=== PATIENT | female | born 1965 | race Caucasian/White ===

== ENCOUNTER 2017-02-03 22:38 | Emergency (ER) | payer BC ==
[2017-02-04] MEDS ORDERED: Sodium Chloride 0.9% 10 ML Syringe FLUSH PRN (01:14)
[2017-02-04] MEDS ORDERED: Sodium Chloride 0.9% 1,000 ML IV ONE (01:14)
[2017-02-04] MEDS ORDERED: Ketorolac 30 MG/ML SDV IVPUSH ONE (01:14)
[2017-02-04] MEDS ORDERED: Ondansetron 4 MG/2 ML SDV IVPUSH ONE (01:14)
--- NOTE | 2017-02-04 01:15 | EDM.PDOC ---
ED HPI HEADACHE COMPLAINT - General Chief Complaint: Headache Stated Complaint: VOMITING POSS KIDNEY STONE Time Seen by Provider: 02/04/17 01:05 Source of Information: Reports: Patient History Limitations: Reports: No limitations - History of Present Illness INITIAL COMMENTS - FREE TEXT/NARRATIVE: Patient presents for evaluation and treatment of a migraine headache and vomiting. Patient reports that her migraine has been present all day. She states that it is now starting to improve. She states that it is currently a 3/ 10. She reports that she has vomited 10-15 times a day. Patient currently complains of headache, photophobia, nausea, vomiting and back pain. She reports that her back pain is chronic and she has not noticed any change. Patient presented to the ER she is concerned she may have kidney stones. She states last time she had kidney stones she had a similar presentation, however, her back pain was worse. She denies any change in urine odor or color or any hematuria or flank pain. Patient reports that she has a history of migraine headaches. She's not on any medications for her migraine headache Timing/Duration: Reports: day(s): (1), improving Severity: Reports: similar to past headaches Associated Symptoms: Reports: photophobia - Related Data Allergies/ADRs: Allergies Allergy/AdvReac Type Severity Reaction Status Date / Time No Known Allergies Allergy Verified 02/03/17 23:05 Home Meds: Home Meds Levothyroxine Sodium [Synthroid] 125 mcg PO DAILY 02/03/17 [History] Minocycline [Minocin] 100 mg PO DAILY PRN 02/03/17 [History] Ondansetron [Zofran ODT] 4 mg PO Q6H PRN #12 tab.dis 02/04/17 [Rx] Past Medical History Musculoskeletal History: Reports: Other (see below) Other Musculoskeletal History: right knee replacement Neurological History: Reports: Migraines Endocrine/Metabolic History: Reports: Hypothyroidism Other Endocrine/Metabolic History: thyroidectomy-graves disease - Infectious Disease History Infectious Disease History: Reports: None - Past Surgical History Female Surgical History: Reports: section, Hysterectomy Social & Family History - Tobacco Use Smoking Status *Q: Never Smoker - Caffeine Use Caffeine Use: Reports: Soda - Recreational Drug Use Recreational Drug Use: No ED ROS GENERAL - Review of Systems Review Of Systems: See Below Constitutional: Denies: fever GI/Abdominal: Reports: Nausea, Vomiting. Denies: Abdominal pain, Constipation, Diarrhea (reports photophobia) : Denies: dysuria, hematuria Musculoskeletal: Reports: back pain Neurological: Reports: Headache - Physical Exam Exam: See Below Exam Limited By: No limitations General Appearance: alert, WD/WN, no apparent distress Eye Exam: bilateral eye: PERRL Ears: normal external exam Throat/Mouth: Normal inspection, Normal voice, No airway compromise Neck: normal inspection, full range of motion Respiratory/Chest: no respiratory distress, lungs clear, normal breath sounds Cardiovascular: normal peripheral pulses, regular rate, rhythm, no murmur Neuro Exam (Abbreviated): alert, oriented, normal cognition Psychiatric: normal affect, normal mood Skin Exam: Warm, Dry, Normal color Course - Orders/Labs/Meds Labs: Laboratory Tests 02/03/17 02/03/17 02/04/17 Range/Units 23:59 23:59 02:55 WBC 8.76 (3.98-10.04) K/mm3 RBC 5.23 H (3.98-5.22) M/mm3 Hgb 15.1 (11.2-15.7) gm/L Hct 42.5 (34.1-44.9) % MCV 81.3 (79.4-94.8) fl MCH 28.9 (25.6-32.2) pg MCHC 35.5 (32.2-35.5) g/dl RDW Std Deviation 37.9 (36.4-46.3) fL Plt Count 244 (182-369) K/mm3 MPV 10.7 (9.4-12.3) fl Neut % (Auto) 87.9 H (34.0-71.1) % Lymph % (Auto) 8.3 L (19.3-51.7) % [place] % (Auto) 3.1 L (4.7-12.5) % Eos % (Auto) 0 L (0.7-5.8) Baso % (Auto) 0.1 (0.1-1.2) % Neut # 7.70 H (1.56-6.13) K/mm3 Lymph # 0.73 L (1.18-3.74) K/mm3 [place] # 0.27 (0.24-0.36) K/mm3 Eos # 0.00 L (0.04-0.36) K/mm3 Baso # 0.01 (0.01-0.08) K/mm3 Manual Slide Review Abnormal smear Sodium 140 (136-145) mEq/L Potassium 3.7 (3.5-5.1) mEq/L Chloride 102 (98-107) mEq/L Carbon Dioxide 27 (21-32) mEq/L Anion Gap 14.7 (5-15) BUN 14 (7-18) mg/dL Creatinine 0.7 (0.55-1.02) mg/dL Est Cr Clr Drug Dosing 83.03 mL/min Estimated GFR (MDRD) > 60 (>60) mL/min BUN/Creatinine Ratio 20.0 H (14-18) Glucose 150 H (74-106) mg/dL Calcium 9.0 (8.5-10.1) mg/dL Total Bilirubin 0.7 (0.2-1.0) mg/dL AST 13 L (15-37) U/L ALT 26 (14-59) U/L Alkaline Phosphatase 81 (46-116) U/L C-Reactive Protein 0.7 (<1.0) mg/dL Total Protein 7.7 (6.4-8.2) g/dl Albumin 4.5 (3.4-5.0) g/dl Globulin 3.2 gm/dL Albumin/Globulin Ratio 1.4 (1-2) Urine Color Yellow (Yellow) Urine Appearance Slt cloudy H (Clear) Urine pH 6.0 (5.0-8.0) Ur Specific [place] > or = 1.030 (1.005-1.030) Urine Protein 2+ H (Negative) Urine Glucose (UA) Negative (Negative) Urine Ketones 2+ H (Negative) Urine Occult Blood Negative (Negative) Urine Nitrite Negative (Negative) Urine Bilirubin Negative (Negative) Urine Urobilinogen 0.2 (0.2-1.0) Ur Leukocyte Esterase Negative (Negative) Urine RBC 0-5 (0-5) /hpf Urine WBC 0-5 (0-5) /hpf Urine WBC Clumps Not seen (NOT SEEN) /hpf Ur Epithelial Cells 10-20 H (0-5) /hpf Urine Bacteria Few (FEW) /hpf Urine Mucus Few (FEW) /hpf Urine Yeast Not seen (NOT SEEN) Meds: Medications Discontinued Medications Generic Name Dose Route Start Last Admin Trade Name Freq PRN Reason Stop Dose Admin Sodium Chloride 1,000 mls @ 999 mls/hr 02/04/17 01:14 02/04/17 01:36 Normal Saline IV 02/04/17 02:14 999 mls/hr ONETIME ONE Administration Ketorolac Tromethamine 30 mg 02/04/17 01:14 02/04/17 01:39 Toradol IVPUSH 02/04/17 01:15 30 mg ONETIME ONE Administration Ondansetron HCl 4 mg 02/04/17 01:14 02/04/17 01:36 Zofran IVPUSH 02/04/17 01:15 4 mg ONETIME ONE Administration Sodium Chloride 10 ml 02/04/17 01:14 02/04/17 01:36 Saline Flush FLUSH 10 ml ASDIRECTED PRN Administration Keep Vein Open - Radiology Interpretation Free Text/Narrative:: CTabdomen and pelvis impression per [facility]:1. No acute findings 2. Small nonobstructing stone the left kidney. - Re-Assessments/Exams Free Text/Narrative Re-Assessment/Exam: 02/04/17 02:35 Labs returned. WBC is 8.76, hgb is 15.1 and plts are 244 Sodium is 140, potassium is 3.7 and chloride is 102. Glucose is 150. CRP is 0.7 Headache and nausea improved. Patient is resting comfortably. 02/04/17 02:55 UA has 2+ protein, 2+ ketones, negative for blood, nitrites, and leuks Patient appears to have a migraine. No further treatment at this time. Will discharge home at this time. Departure - Departure Time of Disposition: 02:56 Disposition: Home, Self-Care 01 Condition: fair Clinical Impression: Migraine Prescriptions: Ondansetron [Zofran ODT] 4 mg PO Q6H PRN #12 tab.dis PRN Reason: Nausea Instructions: Migraine Headache Referrals: Roxann Olivia NP [Primary Care Provider] - Forms: ED Department Discharge Additional Instructions: Go home and rest in a dark quiet room. Make sure you are drinking plenty of fluids. Zofran one tablet sublingual every 6 hours as needed for nausea. Take [id number] Tylenol or Motrin as needed for additional pain relief. Follow up with your primary care prior this week if your symptoms do not improve. Please return to the ER should your symptoms change or worsen.
--- NOTE | 2017-02-05 10:29 | CT ---
CT abdomen and pelvis Technique: Multiple axial sections were obtained from above the dome of the diaphragm inferiorly through the pubic symphysis. Intravenous and oral contrast was not utilized. Study was performed as a ureteral stone protocol. Comparison: Previous pelvic ultrasound of 01/05/15 and abdominal ultrasound of 01/05/15 is available. Findings: Visualized lung bases are clear. Liver shows no focal parenchymal abnormality. Gallbladder shows no calcified gallstones. Spleen appears within normal limits with a length of 10.6 cm. Adrenal glands show no nodule. Kidneys show no hydronephrosis. Minimal 2 mm nonobstructing stone noted within the left kidney. No ureteral dilatation or ureteral calcification is seen. Pancreas appears within normal limits. Aorta shows no aneurysmal dilatation. No retroperitoneal adenopathy or mesenteric abnormalities are seen. Appendix is seen which appears normal. Surgical clips seen within the pelvis. No pelvic mass or adenopathy is seen. No free fluid or inflammatory change is identified within the abdomen or pelvis. Bone window settings were reviewed which show disc space narrowing at L5-S1 with mild diffuse posterior disc bulge, vacuum phenomena and endplate sclerosis. Impression: 1. Small nonobstructing stone within the left kidney. No ureteral dilatation or ureteral stone is seen. 2. Degenerative change at L5-S1 as described above. 3. Other incidental findings. Agree with preliminary report issued by [facility] (preliminary [facility] report dictated on 02/04/17, 3:31 AM Central Time) Diagnostic code #2
== END 2017-02-04 03:15 | disposition home or self-care (01) ==
LOC: SUPCPDRO 22:38 → JD.ED 22:38
DX: G43.909 Migraine, unspecified, not intractable, without status migrainosus (principal); N20.0 Calculus of kidney; R11.2 Nausea with vomiting, unspecified; E03.9 Hypothyroidism, unspecified; E05.00 Thyrotoxicosis with diffuse goiter without thyrotoxic crisis or storm
CPT/HCPCS: 36415; 74176; 80053; 81001; 85025; 86140; 96361; 96374; 96375; 99284; J1885; J2405; J7040; J7050

== ENCOUNTER 2020-04-26 11:24 | Inpatient (IN) | payer OTHER ==
[~2020-04-26 11:24] MED LIST: Acetaminophen 325 MG Tab PO SCH; Bisacodyl 5 MG Tab PO PRN; Lactated Ringers 1,000 ML IV SCH; Lidocaine 1%/Sod Bicarbonate in NS 8.4% 1 ML Syringe IDERM PRN; Morphine 2 MG/ML Syringe IVPUSH PRN; Naloxone 0.4 MG/ML SDV IVPUSH PRN; Pregabalin 25 MG Cap PO SCH; Ropivacaine 0.5% 5 MG/ML 30 ML SDV ONE; Sodium Chloride 0.9% 10 ML Syringe FLUSH PRN; oxyCODONE ER 10 MG TAB.ER PO SCH
[2020-04-26] MEDS ORDERED: Scopolamine 1.5 MG Transdermal Patch TOP SCH (11:30)
--- NOTE | 2020-04-26 11:48 | PCM.CONS ---
H&P History of Present Illness - General Date of Service: 04/26/20 Admit Problem/Dx: Admission Diagnosis/Problem Admission Diagnosis/Problem Knee pain Source of Information: Patient, Old Records, Provider, RN, RN Notes Reviewed History Limitations: Reports: No Limitations - History of Present Illness Initial Comments - Free Text/Narative: Marycarmen Stewart is a 54 yo female patient of Dr. Franco who is post-operative day 0 of right TKA revision. Hospital medicine was consulted for post-operative medical care of the following listed medical conditions. At this time she is resting in bed. Pain is rated at 9/10 but she just received her nerve block from the [employer]. She denies any chest pain, shortness of breath, palpitations, nausea, or vomiting. She carries a history of: Hypothyroidism - S/P thyroidectomy 2/2 graves disease, Migraines, JENNA, HTN, Rosacea, Recurrent UTI, Renal calculus. She was never a smoker. She is a full code. Her primary care provider is Maggie Rivero NP. - Related Data Allergies/Adverse Reactions: Allergies Allergy/AdvReac Type Severity Reaction Status Date / Time No Known Allergies Allergy Verified 04/25/20 10:31 Home Medications: Home Meds Minocycline [Minocin] 100 mg PO DAILY PRN 02/03/17 [History] Cholecalciferol (Vitamin D3) [Vitamin D3] 5,000 unit PO DAILY 04/25/20 [History] Cyclobenzaprine [Flexeril] 10 mg PO TID PRN 04/25/20 [History] Ibuprofen [Motrin] 200 - 400 mg PO Q6H PRN 04/25/20 [History] Lisinopril/Hydrochlorothiazide [Lisinopril-Hctz 10-12.5 mg Tab] 1 tab PO DAILY 04/25/20 [History] SUMAtriptan succinate [Imitrex] 100 mg PO ASDIRECTED PRN 04/25/20 [History] metroNIDAZOLE [Metronidazole] 1 dose TOP ASDIRECTED PRN 04/25/20 [History] Past Medical History HEENT History: Reports: None Cardiovascular History: Reports: Hypertension Respiratory History: Reports: Sleep Apnea Gastrointestinal History: Reports: None Genitourinary History: Reports: UTI, Recurrent CAD ADMINISTRATOR History: Reports: Musculoskeletal History: Reports: Other (See Below) Other Musculoskeletal History: muscle spasms Neurological History: Reports: Migraines Psychiatric History: Reports: None Endocrine/Metabolic History: Reports: Hypothyroidism Other Endocrine/Metabolic History: thyroidectomy-graves disease Hematologic History: Reports: None Immunologic History: Reports: None Oncologic (Cancer) History: Reports: None Dermatologic History: Reports: Other (See Below) Other Dermatologic History: rosacea - Infectious Disease History Infectious Disease History: Reports: None - Past Surgical History Head Surgeries/Procedures: Reports: None HEENT Surgical History: Reports: None Cardiovascular Surgical History: Reports: None Respiratory Surgical History: Reports: None GI Surgical History: Reports: Colonoscopy Female Surgical History: Reports: Section, Hysterectomy Neurological Surgical History: Reports: None Musculoskeletal Surgical History: Reports: Arthroscopic Knee, Knee Replacement, Other (See Below) Other Musculoskeletal Surgeries/Procedures:: right knee arthoscopy and then right knee arthoplasty, hallux valgus correction Dermatological Surgical History: Reports: None Social & Family History - Tobacco Use Smoking Status *Q: Never Smoker Second Hand Smoke Exposure: No - Caffeine Use Caffeine Use: Reports: Coffee, Soda - Recreational Drug Use Recreational Drug Use: No H&P Review of Systems - Review of Systems: Review Of Systems: See Below General: Reports: No Symptoms. Denies: Fever, Chills HEENT: Reports: No Symptoms. Denies: Headaches, Sore Throat Pulmonary: Reports: No Symptoms. Denies: Shortness of Breath, Wheezing, Pleuritic Chest Pain, Cough, Sputum Cardiovascular: Reports: No Symptoms. Denies: Chest Pain, Palpitations, Edema Gastrointestinal: Reports: No Symptoms. Denies: Abdominal Pain, Constipation, Diarrhea, Nausea, Vomiting Genitourinary: Reports: No Symptoms. Denies: Pain Musculoskeletal: Reports: Leg Pain Skin: Reports: No Symptoms. Denies: Cyanosis Psychiatric: Reports: No Symptoms. Denies: Confusion Neurological: Reports: Difficulty Walking, Gait Disturbance Hematologic/Lymphatic: Reports: No Symptoms Immunologic: Reports: No Symptoms Exam - Exam Exam: See Below - Vital Signs Vital Signs: Last Vital Signs Temp 98.2 F 04/26/20 11:30 Pulse 67 04/26/20 11:30 Resp 16 04/26/20 11:30 BP 140/85 04/26/20 11:30 Pulse Ox 99 04/26/20 11:30 Weight: 171 lb - Exam Quality Assessment: DVT Prophylaxis General: Alert, Oriented, Cooperative. No: Mild Distress HEENT: Conjunctiva Clear, EACs Clear, EOMI, Hearing Intact, Mucosa Moist & [place] , Posterior Pharynx Clear Neck: Supple, Trachea Midline Lungs: Clear to Auscultation, Normal Respiratory Effort Cardiovascular: Regular Rate, Regular Rhythm GI/Abdominal Exam: Normal Bowel Sounds, Soft, Non-Tender, No Distention (Female) Exam: Deferred Rectal (Female) Exam: Deferred Back Exam: Normal Inspection, Full Range of Motion Extremities: Normal Capillary Refill, Leg Pain, Limited Range of Motion, Other ( Bandage in place on right leg. Bandage is dry and intact. Cooling pack in place. ) Peripheral Pulses: 2+: Radial (L), Radial (R), Dorsalis Pedis (L), Dorsalis Pedis (R) Skin: Warm, Dry, Intact Neurological: Cranial Nerves Intact (Grossly ) Neuro Extensive - Mental Status: Alert, Oriented x3, Normal Mood/Affect Sepsis Event Note - Focused Exam Vital Signs: Vital Signs Temp Pulse Resp BP Pulse Ox 04/26/20 11:30 98.2 F 67 16 140/85 99 Date Exam was Performed: 04/26/20 Time Exam was Performed: 17:19 Consult PN Assessment/Plan POD#: 0 Procedures: Procedures BONE IMAGING 3 PHASE (03/12/20) C-REACTIVE PROTEIN (04/02/20) COMPLETE CBC W/AUTO DIFF WBC (04/02/20) COMPREHEN METABOLIC PANEL (02/03/17) CT ABD & PELVIS W/O CONTRAST (02/03/17) ELECTROCARDIOGRAM TRACING (04/16/20) EMERGENCY DEPT VISIT (02/03/17) HYDRATE IV INFUSION ADD-ON (02/03/17) MR-STAPH DNA AMP PROBE (04/16/20) RBC SED RATE AUTOMATED (04/02/20) ROUTINE VENIPUNCTURE (04/02/20) THER/PROPH/DIAG INJ IV PUSH (02/03/17) TX/PRO/DX INJ NEW DRUG ADDON (02/03/17) URINALYSIS AUTO W/SCOPE (02/03/17) US EXAM ABDOM COMPLETE (01/05/15) US EXAM PELVIC COMPLETE (01/05/15) X-RAY EXAM CHEST 2 VIEWS (04/16/20) (1) S/P revision of total knee SNOMED Code(s): 3220059844327, 51465384, 6371054840582 Code(s): Z96.659 - PRESENCE OF UNSPECIFIED ARTIFICIAL KNEE JOINT Priority: High Current Visit: Yes Qualifiers: Laterality: right Qualified Code(s): Z96.651 - Presence of right artificial knee joint (2) Hypothyroidism SNOMED Code(s): 08349784 Code(s): E03.9 - HYPOTHYROIDISM, UNSPECIFIED Priority: Medium Current Visit: No Qualifiers: Hypothyroidism type: postoperative Qualified Code(s): E89.0 - Postprocedural hypothyroidism (3) S/P thyroidectomy SNOMED Code(s): 889144384, 42406585, 290344134 Code(s): Z98.890 - OTHER SPECIFIED POSTPROCEDURAL STATES Priority: Low Current Visit: No (4) Migraines SNOMED Code(s): 58736557 Code(s): G43.909 - MIGRAINE, UNSP, NOT INTRACTABLE, WITHOUT STATUS MIGRAINOSUS Priority: Low Current Visit: No Qualifiers: Migraine type: unspecified Status migrainosus presence: without status migrainosus Intractability: not intractable Qualified Code(s): G43.909 - Migraine, unspecified, not intractable, without status migrainosus (5) HTN (hypertension) SNOMED Code(s): 07946985 Code(s): I10 - ESSENTIAL (PRIMARY) HYPERTENSION Priority: Medium Current Visit: No Qualifiers: Hypertension type: unspecified Qualified Code(s): I10 - Essential (primary ) hypertension (6) JENNA (obstructive sleep apnea) SNOMED Code(s): 75736648 Code(s): G47.33 - OBSTRUCTIVE SLEEP APNEA (ADULT) (PEDIATRIC) Priority: Medium Current Visit: No (7) Rosacea SNOMED Code(s): 221738807 Code(s): L71.9 - ROSACEA, UNSPECIFIED Priority: Low Current Visit: No (8) Recurrent UTI SNOMED Code(s): 282247405 Code(s): N39.0 - URINARY TRACT INFECTION, SITE NOT SPECIFIED Priority: Low Current Visit: No (9) History of renal calculi SNOMED Code(s): 369888938 Code(s): Z87.442 - PERSONAL HISTORY OF URINARY CALCULI Priority: Low Current Visit: No (10) History of Graves' disease SNOMED Code(s): 093515640478420 Code(s): Z86.39 - PERSONAL HISTORY OF ENDO, NUTRITIONAL AND METABOLIC DISEASE Priority: Low Current Visit: No Problem List Initiated/Reviewed/Updated: Yes Plan: I/P: Acute: S/P right total knee arthroplasty revision- post-operative day 0 -DVT prophylaxis and pain management per primary care team -PT/OT -IS/RT -Monitor oxygen saturation -Titrate oxygen as needed -Home medications reviewed -Vital signs stable -Monitor labs -Pre-operative Hgb was 13.4 -Pre-operative GFR was 93 -Pre-operative BUN was 22 -Pre-operative creatinine was 0.7 -Pre-operative TSH was 0.10 Chronic: Hypothyroidism - S/P thyroidectomy 2/2 graves disease Migraines JENNA HTN Rosacea Recurrent UTI Renal calculus Plan: CM for discharge planning GI prophylaxis Home medications as indicated Other orders as listed above Routine AM labs She is a full code. Her PCP is Maggie Rivero NP Thank you for allowing us to participate in the care of this patient!! Requesting Provider: Dr. Franco Date Consult Requested: 04/26/20 Patient History Reviewed: Yes Admission H&P Reviewed: Yes Notified Requestor: Yes
[2020-04-26] MEDS ORDERED: Propofol 200 MG/20 ML SDV ONE ×5 (11:50→15:42)
[2020-04-26] MEDS ORDERED: Midazolam 1 MG/ML 2 ML SDV ONE (11:53)
[2020-04-26] MEDS ORDERED: Lidocaine 1% 4 ML ONE (11:56)
[2020-04-26] MEDS ORDERED: Vancomycin 1 GM SDV ONE (11:56)
[2020-04-26] MEDS ORDERED: ceFAZolin 1 GM Vial ONE (11:56)
--- NOTE | 2020-04-26 12:11 | PCM.PREANE ---
Preanesthetic Assessment - Procedure Proposed Procedure: Revision of right TKR - Anesthesia/Transfusion/Family Hx Anesthesia History: Prior Anesthesia Reaction Transfusion History: No Prior Transfusion(s) - Review of Systems General: No Symptoms Pulmonary: No Symptoms Cardiovascular: No Symptoms Gastrointestinal: No Symptoms Neurological: No Symptoms Other: Reports: None - Physical Assessment NPO Status Date: 04/25/20 NPO Status Time: 19:00 Vital Signs: Last Vital Signs Temp 98.2 F 04/26/20 11:30 Pulse 67 04/26/20 11:30 Resp 16 04/26/20 11:30 BP 140/85 04/26/20 11:30 Pulse Ox 99 04/26/20 11:30 Height: 1.63 m Weight: 77.564 kg ASA Class: 2 Mental Status: Alert & Oriented x3 Airway Class: Mallampati = 2 Dentition: Reports: Normal Dentition Thyro-Mental Finger Breadths: 3 Mouth Opening Finger Breadths: 3 ROM/Head Extension: Full Lungs: Clear to Auscultation, Normal Respiratory Effort Cardiovascular: Regular Rate, Regular Rhythm - Allergies Allergies/Adverse Reactions: Allergies Allergy/AdvReac Type Severity Reaction Status Date / Time No Known Allergies Allergy Verified 04/25/20 10:31 - Acknowledgements Anesthesia Type Planned: Spinal, Regional Block (rt adductor canal) Pt an Appropriate Candidate for the Planned Anesthesia: Yes Alternatives and Risks of Anesthesia Discussed w Pt/Guardian: Yes Pt/Guardian Understands and Agrees with Anesthesia Plan: Yes PreAnesthesia Questionnaire HEENT History: Reports: None Cardiovascular History: Reports: Hypertension Respiratory History: Reports: Sleep Apnea Gastrointestinal History: Reports: None Genitourinary History: Reports: Renal Calculus, UTI, 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: Musculoskeletal History: Reports: Other (See Below) Other Musculoskeletal History: muscle spasms Neurological History: Reports: Migraines Psychiatric History: Reports: None Endocrine/Metabolic History: Reports: Hypothyroidism Other Endocrine/Metabolic History: thyroidectomy-graves disease Hematologic History: Reports: None Immunologic History: Reports: None Oncologic (Cancer) History: Reports: None Dermatologic History: Reports: Other (See Below) Other Dermatologic History: rosacea - Infectious Disease History Infectious Disease History: Reports: None - Past Surgical History Head Surgeries/Procedures: Reports: None HEENT Surgical History: Reports: None Cardiovascular Surgical History: Reports: None Respiratory Surgical History: Reports: None GI Surgical History: Reports: Colonoscopy Female Surgical History: Reports: Section, Hysterectomy Neurological Surgical History: Reports: None Musculoskeletal Surgical History: Reports: Arthroscopic Knee, Knee Replacement, Other (See Below) Other Musculoskeletal Surgeries/Procedures:: right knee arthoscopy and then right knee arthoplasty, hallux valgus correction Dermatological Surgical History: Reports: None - SUBSTANCE USE Smoking Status *Q: Never Smoker Second Hand Smoke Exposure: No Recreational Drug Use History: No - HOME MEDS Home Medications: Home Meds Minocycline [Minocin] 100 mg PO DAILY PRN 02/03/17 [History] Cholecalciferol (Vitamin D3) [Vitamin D3] 5,000 unit PO DAILY 04/25/20 [History] Cyclobenzaprine [Flexeril] 10 mg PO TID PRN 04/25/20 [History] Ibuprofen [Motrin] 200 - 400 mg PO Q6H PRN 04/25/20 [History] Lisinopril/Hydrochlorothiazide [Lisinopril-Hctz 10-12.5 mg Tab] 1 tab PO DAILY 04/25/20 [History] SUMAtriptan succinate [Imitrex] 100 mg PO ASDIRECTED PRN 04/25/20 [History] metroNIDAZOLE [Metronidazole] 1 dose TOP ASDIRECTED PRN 04/25/20 [History] - CURRENT (IN HOUSE) MEDS Current Meds: Current Medications Acetaminophen (Tylenol) 975 mg PO ONETIME ALEJANDRO Stop: 04/26/20 14:00 Last Admin: 04/26/20 11:44 Dose: 975 mg Aspirin (Ecotrin) 325 mg PO BID ALEJANDRO Bisacodyl (Dulcolax) 5 mg PO DAILY PRN PRN Reason: Constipation Morphine Sulfate 8 mg/Epinephrine HCl 0.3 mg/Cefuroxime Sodium 750 mg/Ketorolac Tromethamine 30 mg/Sodium Chloride 7.9 ml 0 mg .XX ASDIRECTED PRN PRN Reason: Pain Stop: 04/26/20 15:00 Cyclobenzaprine HCl (Flexeril) 10 mg PO TID PRN PRN Reason: Spasms Docusate Sodium (Colace) 100 mg PO BID ALEJANDRO Famotidine (Pepcid) 20 mg PO Q12H ALEJANDRO Lactated Ringer's (Ringers, Lactated) 1,000 mls @ 125 mls/hr IV ASDIRECTED ALEJANDRO Stop: 04/26/20 23:00 Cefazolin Sodium/Dextrose 2 gm (/ Premix) 50 mls @ 100 mls/hr IV Q8H ALEJANDRO Stop: 04/26/20 23:44 Ketorolac Tromethamine (Toradol) 15 mg IVPUSH Q6H PRN PRN Reason: Pain Lidocaine/Sodium Bicarbonate (Buffered Lidocaine 1% In Ns 8.4%) 0.25 ml IDERM ONETIME PRN PRN Reason: Prior to IV Start Stop: 04/26/20 18:00 Magnesium Hydroxide (Milk Of Magnesia) 30 ml PO BID PRN PRN Reason: Constipation Morphine Sulfate (Morphine) 2 mg IVPUSH Q2H PRN PRN Reason: Breakthrough Pain Naloxone HCl (Narcan) 0.1 mg IVPUSH Q5M PRN PRN Reason: Oversedation Ondansetron HCl (Zofran) 4 mg IVPUSH Q6H PRN PRN Reason: Nausea/Vomiting Oxycodone HCl (Oxycontin) 10 mg PO ONETIME ALEJANDRO Stop: 04/26/20 14:00 Last Admin: 04/26/20 11:44 Dose: 10 mg Oxycodone/Acetaminophen (Percocet 325-5 Mg) 1 - 2 tab PO Q4H PRN PRN Reason: Pain Pregabalin (Lyrica) 50 mg PO ONETIME ALEJANDRO Stop: 04/26/20 14:00 Last Admin: 04/26/20 11:44 Dose: 50 mg Scopolamine (Transderm-Scop) 1.5 mg TOP ONETIME ALEJANDRO Stop: 04/26/20 14:00 Last Admin: 04/26/20 11:44 Dose: 1.5 mg Senna (Senna) 8.6 mg PO BID PRN PRN Reason: Constipation Sodium Chloride (Saline Flush) 10 ml FLUSH ASDIRECTED PRN PRN Reason: Keep Vein Open Stop: 04/26/20 18:00 Discontinued Medications Bupivacaine HCl (Sensorcaine-Mpf 0.25%) Confirm Administered Dose 30 ml .ROUTE .STK-MED ONE Stop: 04/26/20 11:57 Cefazolin Sodium (Ancef) Confirm Administered Dose 2 gm .ROUTE .STK-MED ONE Stop: 04/26/20 11:55 Cefazolin Sodium (Ancef) Confirm Administered Dose 2 gm .ROUTE .STK-MED ONE Stop: 04/26/20 11:57 Lidocaine HCl (Xylocaine-Mpf 1%) Confirm Administered Dose 4 mls @ as directed .ROUTE .ST-MED ONE Stop: 04/26/20 11:57 Iodine (Iodine 2% Mild Tincture) Confirm Administered Dose 30 ml .ROUTE .STK- MED ONE Stop: 04/26/20 11:57 Midazolam HCl (Versed 1 Mg/Ml) Confirm Administered Dose 2 mg .ROUTE .ST-MED ONE Stop: 04/26/20 11:54 Propofol (Diprivan 20 Ml) Confirm Administered Dose 200 mg .ROUTE .STK-MED ONE Stop: 04/26/20 11:51 Propofol (Diprivan 20 Ml) Confirm Administered Dose 200 mg .ROUTE .ST-MED ONE Stop: 04/26/20 11:51 Ropivacaine (Naropin 0.5%) Confirm Administered Dose 30 ml .ROUTE .ST-MED ONE Stop: 04/26/20 07:29 Tranexamic Acid (Cyklokapron) Confirm Administered Dose 1,000 mg .ROUTE .ST- MED ONE Stop: 04/26/20 11:57 Vancomycin HCl (Vancomycin) Confirm Administered Dose 1 gm .ROUTE .STK-MED ONE Stop: 04/26/20 11:57
[2020-04-26] MEDS: Iodine/Sodium Iodide 2% Tincture 30 ML Bottle ONE ×2 (14:54→15:54)
[2020-04-26] MEDS: ceFAZolin 1 GM Vial ONE ×2 (14:55→15:57)
[2020-04-26] MEDS: Morphine Sulfate 8 MG, EPINEPHrine 0.3 MG, Cefuroxime 750 MG, Ketorolac 30 MG, Sodium C... PRN ×10 (14:55→16:01)
[2020-04-26] MEDS: Bupivacaine 0.25% 10 ML SDV ONE ×2 (14:55→16:01)
[2020-04-26] MEDS: Vancomycin 1 GM SDV ONE ×2 (14:57→16:04)
[2020-04-26] MEDS ORDERED: Cyclobenzaprine 10 MG Tab PO PRN (15:00)
[2020-04-26] MEDS ORDERED: Lactated Ringers 1,000 ML ONE (16:15)
[2020-04-26] MEDS ORDERED: HYDROmorphone 0.5 MG/0.5 ML Syringe ONE ×2 (16:37→16:49)
[2020-04-26] MEDS ORDERED: Lidocaine 1% 2 ML ONE (16:40)
[2020-04-26] MEDS ORDERED: fentaNYL 100 MCG/2 ML SDV IVPUSH PRN (16:45)
--- NOTE | 2020-04-26 16:46 | PCM.POSTAN ---
POST ANESTHESIA ASSESSMENT - MENTAL STATUS Mental Status: Alert, Oriented - VITAL SIGNS Vital Signs: Last Vital Signs Temp 97.9 F 04/26/20 16:33 Pulse 67 04/26/20 11:30 Resp 18 04/26/20 16:45 BP 138/89 04/26/20 16:45 Pulse Ox 96 04/26/20 16:45 - RESPIRATORY Respiratory Status: Respiratory Rate WNL, Airway Patent, O2 Saturation Stable - CARDIOVASCULAR CV Status: Pulse Rate WNL, Blood Pressure Stable - GASTROINTESTINAL GI Status: No Symptoms - PAIN Pain Score: 7 (Orders in) - POST OP HYDRATION Hydration Status: Adequate & Stable
[2020-04-26] MEDS: HYDROmorphone 0.5 MG/0.5 ML Syringe IVPUSH PRN ×2 (16:50→17:19)
--- NOTE | 2020-04-26 17:04 | CR ---
Right knee: AP and lateral views of the right knee were obtained. Comparison: Prior right knee radiographic exam of 06/04/11. Knee prosthesis is seen. Components are aligned. Soft tissue air is noted from the surgical procedure. No acute bony abnormality is seen. Impression: 1. Satisfactory appearance of recently placed right knee prosthesis. Diagnostic code #2 This report was dictated in MDT
--- NOTE | 2020-04-26 17:27 | PCM.PRNOTE ---
- Free Text/Narrative Note: Postoperative regional pain control requested by surgeon. 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 Leyva Ct Risks and benefits discussed with the patient preoperatively including infection , bleeding, incomplete or failed block, possible nerve damage, local anesthetic toxicity. Chart reviewed, VS stable. Permit signed. Patient in PACU, stable , alert and awake. Subarachnoid block wore of, Pain 7-8/ 10. Time out performed at 16:58. Right mid-thigh was prepped with Chloraprep x 1 and allowed to dry. Dilaudid 0.5 mg followed by Fentanyl 100mcg IV given due to severe pain. Under aseptic technique, the right femoral artery and sartorius muscle were identified under ultrasound prior to needle insertion. Local infiltration with 2ml of 1% Lidocaine. 4" Stimuplex needle #22 G was inserted under US guidance. Under direct visualization of needle tip the injection of 0.5 % Ropivacaine with 1:200k epinephrine, total of 30 mls in divided doses, maintaining negative aspiration was completed around the femoral artery under the sartorius muscle without problems. Blood return noticed once and the needle repositioned until aspiration was negative. No local anesthetic toxicity was noted. Patient is awake, stable and tolerated the procedure well. Please see the US images. Time: 16:58 - 17:04
[2020-04-26] MEDS: Ondansetron 4 MG/2 ML SDV IVPUSH PRN (19:17)
[2020-04-26] MEDS ORDERED: Cholecalciferol (Vitamin D3) 5,000 UNIT Tab PO SCH (21:00)
[2020-04-26] MEDS ORDERED: Sennosides 8.6 MG Tab PO PRN (21:00)
[2020-04-26] MEDS ORDERED: Magnesium Hydroxide 400 MG/5 ML Susp 30 ML Cup PO PRN (21:00)
[2020-04-26] MEDS: ceFAZolin 2 GM in Premix Bag 1 BAG IV SCH (21:10)
[2020-04-26] MEDS: Docusate Sodium 100 MG Cap PO SCH (21:11)
[2020-04-26] MEDS: Famotidine 20 MG Tab PO SCH (21:11)
[2020-04-26] MEDS: Ketorolac 15 MG/ML SDV IVPUSH PRN (21:11)
[2020-04-26] MEDS: Acetaminophen/oxyCODONE 325-5 MG Tab PO PRN (21:12)
[2020-04-27] MEDS: Acetaminophen/oxyCODONE 325-5 MG Tab PO PRN ×3 (02:43→12:43)
[2020-04-27] MEDS: ceFAZolin 2 GM in Premix Bag 1 BAG IV SCH ×2 (03:16→11:13)
[2020-04-27] MEDS: Ondansetron 4 MG/2 ML SDV IVPUSH PRN ×3 (03:16→12:43)
--- NOTE | 2020-04-27 07:58 | PCM.CONSN ---
- General Info Date of Service: 04/27/20 Admission Dx/Problem (Free Text): Admission Diagnosis/Problem Admission Diagnosis/Problem Knee pain Functional Status: Reports: Pain Controlled, Tolerating Diet, Ambulating, Urinating, Incentive Spirometry. Denies: New Symptoms - Review of Systems General: Reports: No Symptoms. Denies: Fever, Chills HEENT: Reports: No Symptoms. Denies: Headaches, Sore Throat Pulmonary: Reports: No Symptoms. Denies: Shortness of Breath, Pleuritic Chest Pain, Cough, Sputum, Wheezing Cardiovascular: Reports: No Symptoms. Denies: Chest Pain, Palpitations, Dyspnea on Exertion Gastrointestinal: Reports: Nausea. Denies: Abdominal Pain, Constipation, Diarrhea, Vomiting Genitourinary: Reports: No Symptoms. Denies: Pain Musculoskeletal: Reports: Leg Pain Skin: Reports: No Symptoms. Denies: Cyanosis Neurological: Reports: Difficulty Walking, Gait Disturbance. Denies: Confusion Psychiatric: Reports: No Symptoms - Patient Data Vitals - Most Recent: Last Vital Signs Temp 98.1 F 04/27/20 02:47 Pulse 69 04/27/20 02:47 Resp 18 04/27/20 02:47 BP 126/77 04/27/20 02:47 Pulse Ox 100 04/27/20 02:47 Weight - Most Recent: 171 lb I&O - Last 24 Hours: Intake & Output 04/26/20 04/27/20 04/27/20 22:59 06:59 14:59 Intake Total 350 850 Output Total 300 Balance 350 550 Lab Results Last 24 Hours: Laboratory Results - last 24 hr 04/27/20 04/27/20 Range/Units 05:28 05:28 WBC 11.45 H (3.98-10.04) K/mm3 RBC 4.44 (3.98-5.22) M/mm3 Hgb 12.6 (11.2-15.7) gm/dl Hct 37.5 (34.1-44.9) % MCV 84.5 (79.4-94.8) fl MCH 28.4 (25.6-32.2) pg MCHC 33.6 (32.2-35.5) g/dl RDW Std Deviation 40.0 (36.4-46.3) fL Plt Count 232 (182-369) K/mm3 MPV 10.5 (9.4-12.3) fl Sodium 136 (136-145) mEq/L Potassium 4.2 (3.5-5.1) mEq/L Chloride 101 (98-107) mEq/L Carbon Dioxide 29 (21-32) mEq/L Anion Gap 10.2 (5-15) BUN 15 (7-18) mg/dL Creatinine 0.8 (0.55-1.02) mg/dL Est Cr Clr Drug Dosing 70.23 mL/min Estimated GFR (MDRD) > 60 (>60) mL/min BUN/Creatinine Ratio 18.8 H (14-18) Glucose 168 H (74-106) mg/dL Calcium 7.8 L (8.5-10.1) mg/dL Total Bilirubin 0.4 (0.2-1.0) mg/dL AST 19 (15-37) U/L ALT 26 (14-59) U/L Alkaline Phosphatase 58 (46-116) U/L Total Protein 6.8 (6.4-8.2) g/dl Albumin 3.3 L (3.4-5.0) g/dl Globulin 3.5 gm/dL Albumin/Globulin Ratio 0.9 L (1-2) Med Orders - Current: Current Medications Aspirin (Ecotrin) 325 mg PO BID [facility] Bisacodyl (Dulcolax) 5 mg PO DAILY PRN PRN Reason: Constipation Cholecalciferol (Vitamin D3) 5,000 unit PO BEDTIME [facility] Last Admin: 04/26/20 21:11 Dose: 5,000 unit Cyclobenzaprine HCl (Flexeril) 10 mg PO TID PRN PRN Reason: Spasms Last Admin: 04/27/20 02:44 Dose: 10 mg Docusate Sodium (Colace) 100 mg PO BID [facility] Last Admin: 04/26/20 21:11 Dose: 100 mg Famotidine (Pepcid) 20 mg PO Q12H [facility] Last Admin: 04/26/20 21:11 Dose: 20 mg Cefazolin Sodium/Dextrose 2 gm (/ Premix) 50 mls @ 100 mls/hr IV Q8H [facility] Stop: 04/27/20 12:29 Last Admin: 04/27/20 03:16 Dose: 100 mls/hr Ketorolac Tromethamine (Toradol) 15 mg IVPUSH Q6H PRN PRN Reason: Pain Last Admin: 04/26/20 21:11 Dose: 15 mg Magnesium Hydroxide (Milk Of Magnesia) 30 ml PO BID PRN PRN Reason: Constipation Morphine Sulfate (Morphine) 2 mg IVPUSH Q2H PRN PRN Reason: Breakthrough Pain Naloxone HCl (Narcan) 0.1 mg IVPUSH Q5M PRN PRN Reason: Oversedation Ondansetron HCl (Zofran) 4 mg IVPUSH Q6H PRN PRN Reason: Nausea/Vomiting Last Admin: 04/27/20 03:16 Dose: 4 mg Oxycodone/Acetaminophen (Percocet 325-5 Mg) 1 - 2 tab PO Q4H PRN PRN Reason: Pain Last Admin: 04/27/20 02:43 Dose: 2 tab Senna (Senna) 8.6 mg PO BID PRN PRN Reason: Constipation Discontinued Medications Acetaminophen (Tylenol) 975 mg PO ONETIME ALEJANDRO Stop: 04/26/20 14:00 Last Admin: 04/26/20 11:44 Dose: 975 mg Bupivacaine HCl (Sensorcaine-Mpf 0.25%) Confirm Administered Dose 30 ml .ROUTE .STK-MED ONE Stop: 04/26/20 11:57 Last Admin: 04/26/20 16:01 Dose: 30 ml Cefazolin Sodium (Ancef) Confirm Administered Dose 2 gm .ROUTE .STK-MED ONE Stop: 04/26/20 11:55 Last Admin: 04/26/20 15:57 Dose: 2 gm Cefazolin Sodium (Ancef) Confirm Administered Dose 2 gm .ROUTE .STK-MED ONE Stop: 04/26/20 11:57 Morphine Sulfate 8 mg/Epinephrine HCl 0.3 mg/Cefuroxime Sodium 750 mg/Ketorolac Tromethamine 30 mg/Sodium Chloride 7.9 ml 0 mg .XX ASDIRECTED PRN PRN Reason: Pain Stop: 04/26/20 15:00 Last Admin: 04/26/20 16:01 Dose: 788.3 mg Fentanyl (Sublimaze) 100 mcg IVPUSH Q5M PRN PRN Reason: Pain Stop: 04/26/20 19:00 Last Admin: 04/26/20 16:56 Dose: 100 mcg Hydromorphone HCl (Dilaudid) Confirm Administered Dose 0.5 mg .ROUTE .STK-MED ONE Stop: 04/26/20 16:38 Hydromorphone HCl (Dilaudid) 0.5 mg IVPUSH Q10M PRN PRN Reason: Pain (severe 7-10) Stop: 04/26/20 19:00 Last Admin: 04/26/20 17:19 Dose: 0.5 mg Hydromorphone HCl (Dilaudid) Confirm Administered Dose 0.5 mg .ROUTE .STK-MED ONE Stop: 04/26/20 16:50 Last Admin: 04/26/20 16:54 Dose: Not Given Lactated Ringer's (Ringers, Lactated) 1,000 mls @ 125 mls/hr IV ASDIRECTED ALEJANDRO Stop: 04/26/20 23:00 Last Admin: 04/26/20 11:40 Dose: 125 mls/hr Lidocaine HCl (Xylocaine-Mpf 1%) Confirm Administered Dose 4 mls @ as directed .ROUTE .STK-MED ONE Stop: 04/26/20 11:57 Lactated Ringer's (Ringers, Lactated) Confirm Administered Dose 1,000 mls @ as directed .ROUTE .STK-MED ONE Stop: 04/26/20 16:16 Lidocaine HCl (Xylocaine-Mpf 1%) Confirm Administered Dose 2 mls @ as directed .ROUTE .STK-MED ONE Stop: 04/26/20 16:41 Iodine (Iodine 2% Mild Tincture) Confirm Administered Dose 30 ml .ROUTE .STK- MED ONE Stop: 04/26/20 11:57 Last Admin: 04/26/20 15:54 Dose: 18 ml Lidocaine/Sodium Bicarbonate (Buffered Lidocaine 1% In Ns 8.4%) 0.25 ml IDERM ONETIME PRN PRN Reason: Prior to IV Start Stop: 04/26/20 18:00 Last Admin: 04/26/20 11:40 Dose: 0.25 ml Midazolam HCl (Versed 1 Mg/Ml) Confirm Administered Dose 2 mg .ROUTE .STK-MED ONE Stop: 04/26/20 11:54 Oxycodone HCl (Oxycontin) 10 mg PO ONETIME [facility] Stop: 04/26/20 14:00 Last Admin: 04/26/20 11:44 Dose: 10 mg Pregabalin (Lyrica) 50 mg PO ONETIME [facility] Stop: 04/26/20 14:00 Last Admin: 04/26/20 11:44 Dose: 50 mg Propofol (Diprivan 20 Ml) Confirm Administered Dose 200 mg .ROUTE .STK-MED ONE Stop: 04/26/20 11:51 Propofol (Diprivan 20 Ml) Confirm Administered Dose 200 mg .ROUTE .STK-MED ONE Stop: 04/26/20 11:51 Propofol (Diprivan 20 Ml) Confirm Administered Dose 200 mg .ROUTE .STK-MED ONE Stop: 04/26/20 14:48 Propofol (Diprivan 20 Ml) Confirm Administered Dose 200 mg .ROUTE .STK-MED ONE Stop: 04/26/20 15:15 Propofol (Diprivan 20 Ml) Confirm Administered Dose 200 mg .ROUTE .STK-MED ONE Stop: 04/26/20 15:43 Ropivacaine (Naropin 0.5%) Confirm Administered Dose 30 ml .ROUTE .STK-MED ONE Stop: 04/26/20 07:29 Scopolamine (Transderm-Scop) 1.5 mg TOP ONETIME [facility] Stop: 04/26/20 14:00 Last Admin: 04/26/20 11:44 Dose: 1.5 mg Sodium Chloride (Saline Flush) 10 ml FLUSH ASDIRECTED PRN PRN Reason: Keep Vein Open Stop: 04/26/20 18:00 Tranexamic Acid (Cyklokapron) Confirm Administered Dose 1,000 mg .ROUTE .STK- MED ONE Stop: 04/26/20 11:57 Last Admin: 04/26/20 16:09 Dose: 1,000 mg Vancomycin HCl (Vancomycin) Confirm Administered Dose 1 gm .ROUTE .STK-MED ONE Stop: 04/26/20 11:57 Vancomycin HCl (Vancomycin) Confirm Administered Dose 1 gm .ROUTE .STK-MED ONE Stop: 04/26/20 13:41 Last Admin: 04/26/20 16:04 Dose: 1 gm - Exam Quality Assessment: DVT Prophylaxis. No: Supplemental Oxygen General: Alert, Oriented, Cooperative, No Acute Distress HEENT: Pupils Equal, Pupils Reactive, Mucous Membr. Moist/[place] Neck: Supple, Trachea Midline Lungs: Clear to Auscultation, Normal Respiratory Effort Cardiovascular: Regular Rate, Regular Rhythm GI/Abdominal Exam: Normal Bowel Sounds, Soft, Non-Tender, No Distention (Female) Exam: Deferred Back Exam: Normal Inspection, Full Range of Motion Extremities: Normal Capillary Refill, Leg Pain, Limited Range of Motion, Other ( Bandage in place on right leg. Cooling pack in place. ) Peripheral Pulses: 2+: Radial (L), Radial (R), Dorsalis Pedis (L), Dorsalis Pedis (R) Skin: Warm, Dry, Intact Wound/Incisions: Dressing Dry and Intact Neurological: No New Focal Deficit Psy/Mental Status: Alert, Normal Affect, Normal Mood Consult PN Assessment/Plan POD#: 1 Procedures: Procedures BONE IMAGING 3 PHASE (03/12/20) C-REACTIVE PROTEIN (04/02/20) COMPLETE CBC W/AUTO DIFF WBC (04/02/20) COMPREHEN METABOLIC PANEL (02/03/17) CT ABD & PELVIS W/O CONTRAST (02/03/17) ELECTROCARDIOGRAM TRACING (04/16/20) EMERGENCY DEPT VISIT (02/03/17) HYDRATE IV INFUSION ADD-ON (02/03/17) MR-STAPH DNA AMP PROBE (04/16/20) RBC SED RATE AUTOMATED (04/02/20) ROUTINE VENIPUNCTURE (04/02/20) THER/PROPH/DIAG INJ IV PUSH (02/03/17) TX/PRO/DX INJ NEW DRUG ADDON (02/03/17) URINALYSIS AUTO W/SCOPE (02/03/17) US EXAM ABDOM COMPLETE (01/05/15) US EXAM PELVIC COMPLETE (01/05/15) X-RAY EXAM CHEST 2 VIEWS (04/16/20) (1) S/P revision of total knee SNOMED Code(s): 7425138407722, 33133002, 3273650024477 Code(s): Z96.659 - PRESENCE OF UNSPECIFIED ARTIFICIAL KNEE JOINT Priority: High Current Visit: Yes Qualifiers: Laterality: right Qualified Code(s): Z96.651 - Presence of right artificial knee joint (2) Hypothyroidism SNOMED Code(s): 75840719 Code(s): E03.9 - HYPOTHYROIDISM, UNSPECIFIED Priority: Medium Current Visit: No Qualifiers: Hypothyroidism type: postoperative Qualified Code(s): E89.0 - Postprocedural hypothyroidism (3) S/P thyroidectomy SNOMED Code(s): 017617956, 82088648, 193651414 Code(s): Z98.890 - OTHER SPECIFIED POSTPROCEDURAL STATES Priority: Low Current Visit: No (4) Migraines SNOMED Code(s): 29641051 Code(s): G43.909 - MIGRAINE, UNSP, NOT INTRACTABLE, WITHOUT STATUS MIGRAINOSUS Priority: Low Current Visit: No Qualifiers: Migraine type: unspecified Status migrainosus presence: without status migrainosus Intractability: not intractable Qualified Code(s): G43.909 - Migraine, unspecified, not intractable, without status migrainosus (5) HTN (hypertension) SNOMED Code(s): 51150716 Code(s): I10 - ESSENTIAL (PRIMARY) HYPERTENSION Priority: Medium Current Visit: No Qualifiers: Hypertension type: unspecified Qualified Code(s): I10 - Essential (primary ) hypertension (6) JENNA (obstructive sleep apnea) SNOMED Code(s): 51978784 Code(s): G47.33 - OBSTRUCTIVE SLEEP APNEA (ADULT) (PEDIATRIC) Priority: Medium Current Visit: No (7) Rosacea SNOMED Code(s): 925145260 Code(s): L71.9 - ROSACEA, UNSPECIFIED Priority: Low Current Visit: No (8) Recurrent UTI SNOMED Code(s): 280128015 Code(s): N39.0 - URINARY TRACT INFECTION, SITE NOT SPECIFIED Priority: Low Current Visit: No (9) History of renal calculi SNOMED Code(s): 535747736 Code(s): Z87.442 - PERSONAL HISTORY OF URINARY CALCULI Priority: Low Current Visit: No (10) History of Graves' disease SNOMED Code(s): 066599780951475 Code(s): Z86.39 - PERSONAL HISTORY OF ENDO, NUTRITIONAL AND METABOLIC DISEASE Priority: Low Current Visit: No Problem List Initiated/Reviewed/Updated: Yes My Orders Last 24 Hours: My Active Orders 04/26/20 21:00 Cholecalciferol (Vitamin D3) [Vitamin D3] 5,000 unit PO BEDTIME Plan: I/P: Acute: S/P right total knee arthroplasty revision- post-operative day 1 -DVT prophylaxis and pain management per primary care team -PT/OT -IS/RT -Monitor oxygen saturation -Titrate oxygen as needed -Home medications reviewed -Vital signs stable -Monitor labs -Pre-operative Hgb was 13.4; Now 12.6 -Pre-operative GFR was 93; Now >60 -Pre-operative BUN was 22; Now 15 -Pre-operative creatinine was 0.7; Now 0.8 -Pre-operative TSH was 0.10 Chronic: Hypothyroidism - S/P thyroidectomy 2/2 graves disease Migraines JENNA HTN Rosacea Recurrent UTI Renal calculus Plan: CM for discharge planning GI prophylaxis Home medications as indicated Other orders as listed above Routine AM labs She is a full code. Her PCP is Maggie Rivero NP From a hospitalist standpoint Marycarmen is doing well. She has been up ambulating and working with therapies. She is off of oxygen and has urinated. Her labs and vital signs remain stable. Her pain is controlled. She continues to have some nausea but primary team is giving her zofran. She is cleared for discharge pending primary team and PT/OT agreement. Thank you for allowing us to participate in the care of this patient!! Sepsis Event Note - Evaluation Sepsis Screening Result: No Definite Risk - Focused Exam Vital Signs: Vital Signs Temp Pulse Resp BP Pulse Ox 04/27/20 02:47 98.1 F 69 18 126/77 100 04/27/20 00:32 61 124/78 100 04/27/20 00:02 67 121/77 98 04/26/20 23:32 63 126/71 97 04/26/20 23:02 67 130/70 96 04/26/20 22:32 66 132/77 98 04/26/20 22:02 81 136/80 91 L 04/26/20 21:32 73 134/83 97 04/26/20 21:02 68 143/87 H 95 04/26/20 20:32 59 L 136/93 H 89 L 04/26/20 20:02 63 131/87 89 L Date Exam was Performed: 04/27/20 Time Exam was Performed: 11:32
[2020-04-27] MEDS: Famotidine 20 MG Tab PO SCH (08:18)
[2020-04-27] MEDS: Docusate Sodium 100 MG Cap PO SCH (08:19)
--- NOTE | 2020-04-27 08:33 | PCM.SURGPN ---
- General Info Date of Service: 04/27/20 POD#: 1 Functional Status: Reports: Pain Controlled, Tolerating Diet, Ambulating, Urinating, Incentive Spirometry, Other (The pt notes nausea. She was able to eat a small amount of breakfast.) - Patient Data Vitals - Most Recent: Last Vital Signs Temp 99.0 F 04/27/20 08:13 Pulse 69 04/27/20 08:13 Resp 16 04/27/20 08:13 BP 126/73 04/27/20 08:13 Pulse Ox 98 04/27/20 08:13 Weight - Most Recent: 171 lb I&O - Last 24 Hours: Intake & Output 04/26/20 04/27/20 04/27/20 22:59 06:59 14:59 Intake Total 350 850 Output Total 300 Balance 350 550 Lab Results Last 24 Hrs: Laboratory Results - last 24 hr 04/27/20 04/27/20 Range/Units 05:28 05:28 WBC 11.45 H (3.98-10.04) K/mm3 RBC 4.44 (3.98-5.22) M/mm3 Hgb 12.6 (11.2-15.7) gm/dl Hct 37.5 (34.1-44.9) % MCV 84.5 (79.4-94.8) fl MCH 28.4 (25.6-32.2) pg MCHC 33.6 (32.2-35.5) g/dl RDW Std Deviation 40.0 (36.4-46.3) fL Plt Count 232 (182-369) K/mm3 MPV 10.5 (9.4-12.3) fl Sodium 136 (136-145) mEq/L Potassium 4.2 (3.5-5.1) mEq/L Chloride 101 (98-107) mEq/L Carbon Dioxide 29 (21-32) mEq/L Anion Gap 10.2 (5-15) BUN 15 (7-18) mg/dL Creatinine 0.8 (0.55-1.02) mg/dL Est Cr Clr Drug Dosing 70.23 mL/min Estimated GFR (MDRD) > 60 (>60) mL/min BUN/Creatinine Ratio 18.8 H (14-18) Glucose 168 H (74-106) mg/dL Calcium 7.8 L (8.5-10.1) mg/dL Total Bilirubin 0.4 (0.2-1.0) mg/dL AST 19 (15-37) U/L ALT 26 (14-59) U/L Alkaline Phosphatase 58 (46-116) U/L Total Protein 6.8 (6.4-8.2) g/dl Albumin 3.3 L (3.4-5.0) g/dl Globulin 3.5 gm/dL Albumin/Globulin Ratio 0.9 L (1-2) Med Orders - Current: Current Medications Aspirin (Ecotrin) 325 mg PO BID [facility] Last Admin: 04/27/20 08:18 Dose: 325 mg Bisacodyl (Dulcolax) 5 mg PO DAILY PRN PRN Reason: Constipation Cholecalciferol (Vitamin D3) 5,000 unit PO BEDTIME [facility] Last Admin: 04/26/20 21:11 Dose: 5,000 unit Cyclobenzaprine HCl (Flexeril) 10 mg PO TID PRN PRN Reason: Spasms Last Admin: 04/27/20 02:44 Dose: 10 mg Docusate Sodium (Colace) 100 mg PO BID [facility] Last Admin: 04/27/20 08:19 Dose: 100 mg Famotidine (Pepcid) 20 mg PO Q12H [facility] Last Admin: 04/27/20 08:18 Dose: 20 mg Cefazolin Sodium/Dextrose 2 gm (/ Premix) 50 mls @ 100 mls/hr IV Q8H [facility] Stop: 04/27/20 12:29 Last Admin: 04/27/20 03:16 Dose: 100 mls/hr Ketorolac Tromethamine (Toradol) 15 mg IVPUSH Q6H PRN PRN Reason: Pain Last Admin: 04/26/20 21:11 Dose: 15 mg Magnesium Hydroxide (Milk Of Magnesia) 30 ml PO BID PRN PRN Reason: Constipation Morphine Sulfate (Morphine) 2 mg IVPUSH Q2H PRN PRN Reason: Breakthrough Pain Naloxone HCl (Narcan) 0.1 mg IVPUSH Q5M PRN PRN Reason: Oversedation Ondansetron HCl (Zofran) 4 mg IVPUSH Q6H PRN PRN Reason: Nausea/Vomiting Last Admin: 04/27/20 03:16 Dose: 4 mg Oxycodone/Acetaminophen (Percocet 325-5 Mg) 1 - 2 tab PO Q4H PRN PRN Reason: Pain Last Admin: 04/27/20 08:18 Dose: 2 tab Senna (Senna) 8.6 mg PO BID PRN PRN Reason: Constipation Discontinued Medications Acetaminophen (Tylenol) 975 mg PO ONETIME [facility] Stop: 04/26/20 14:00 Last Admin: 04/26/20 11:44 Dose: 975 mg Bupivacaine HCl (Sensorcaine-Mpf 0.25%) Confirm Administered Dose 30 ml .ROUTE .STK-MED ONE Stop: 04/26/20 11:57 Last Admin: 04/26/20 16:01 Dose: 30 ml Cefazolin Sodium (Ancef) Confirm Administered Dose 2 gm .ROUTE .STK-MED ONE Stop: 04/26/20 11:55 Last Admin: 04/26/20 15:57 Dose: 2 gm Cefazolin Sodium (Ancef) Confirm Administered Dose 2 gm .ROUTE .STK-MED ONE Stop: 04/26/20 11:57 Morphine Sulfate 8 mg/Epinephrine HCl 0.3 mg/Cefuroxime Sodium 750 mg/Ketorolac Tromethamine 30 mg/Sodium Chloride 7.9 ml 0 mg .XX ASDIRECTED PRN PRN Reason: Pain Stop: 04/26/20 15:00 Last Admin: 04/26/20 16:01 Dose: 788.3 mg Fentanyl (Sublimaze) 100 mcg IVPUSH Q5M PRN PRN Reason: Pain Stop: 04/26/20 19:00 Last Admin: 04/26/20 16:56 Dose: 100 mcg Hydromorphone HCl (Dilaudid) Confirm Administered Dose 0.5 mg .ROUTE .STK-MED ONE Stop: 04/26/20 16:38 Hydromorphone HCl (Dilaudid) 0.5 mg IVPUSH Q10M PRN PRN Reason: Pain (severe 7-10) Stop: 04/26/20 19:00 Last Admin: 04/26/20 17:19 Dose: 0.5 mg Hydromorphone HCl (Dilaudid) Confirm Administered Dose 0.5 mg .ROUTE .STK-MED ONE Stop: 04/26/20 16:50 Last Admin: 04/26/20 16:54 Dose: Not Given Lactated Ringer's (Ringers, Lactated) 1,000 mls @ 125 mls/hr IV ASDIRECTED [facility] Stop: 04/26/20 23:00 Last Admin: 04/26/20 11:40 Dose: 125 mls/hr Lidocaine HCl (Xylocaine-Mpf 1%) Confirm Administered Dose 4 mls @ as directed .ROUTE .STK-MED ONE Stop: 04/26/20 11:57 Lactated Ringer's (Ringers, Lactated) Confirm Administered Dose 1,000 mls @ as directed .ROUTE .STK-MED ONE Stop: 04/26/20 16:16 Lidocaine HCl (Xylocaine-Mpf 1%) Confirm Administered Dose 2 mls @ as directed .ROUTE .STK-MED ONE Stop: 04/26/20 16:41 Iodine (Iodine 2% Mild Tincture) Confirm Administered Dose 30 ml .ROUTE .STK- MED ONE Stop: 04/26/20 11:57 Last Admin: 04/26/20 15:54 Dose: 18 ml Lidocaine/Sodium Bicarbonate (Buffered Lidocaine 1% In Ns 8.4%) 0.25 ml IDERM ONETIME PRN PRN Reason: Prior to IV Start Stop: 04/26/20 18:00 Last Admin: 04/26/20 11:40 Dose: 0.25 ml Midazolam HCl (Versed 1 Mg/Ml) Confirm Administered Dose 2 mg .ROUTE .STK-MED ONE Stop: 04/26/20 11:54 Oxycodone HCl (Oxycontin) 10 mg PO ONETIME [facility] Stop: 04/26/20 14:00 Last Admin: 04/26/20 11:44 Dose: 10 mg Pregabalin (Lyrica) 50 mg PO ONETIME [facility] Stop: 04/26/20 14:00 Last Admin: 04/26/20 11:44 Dose: 50 mg Propofol (Diprivan 20 Ml) Confirm Administered Dose 200 mg .ROUTE .STK-MED ONE Stop: 04/26/20 11:51 Propofol (Diprivan 20 Ml) Confirm Administered Dose 200 mg .ROUTE .STK-MED ONE Stop: 04/26/20 11:51 Propofol (Diprivan 20 Ml) Confirm Administered Dose 200 mg .ROUTE .STK-MED ONE Stop: 04/26/20 14:48 Propofol (Diprivan 20 Ml) Confirm Administered Dose 200 mg .ROUTE .STK-MED ONE Stop: 04/26/20 15:15 Propofol (Diprivan 20 Ml) Confirm Administered Dose 200 mg .ROUTE .STK-MED ONE Stop: 04/26/20 15:43 Ropivacaine (Naropin 0.5%) Confirm Administered Dose 30 ml .ROUTE .STK-MED ONE Stop: 04/26/20 07:29 Scopolamine (Transderm-Scop) 1.5 mg TOP ONETIME [facility] Stop: 04/26/20 14:00 Last Admin: 04/26/20 11:44 Dose: 1.5 mg Sodium Chloride (Saline Flush) 10 ml FLUSH ASDIRECTED PRN PRN Reason: Keep Vein Open Stop: 04/26/20 18:00 Tranexamic Acid (Cyklokapron) Confirm Administered Dose 1,000 mg .ROUTE .STK- MED ONE Stop: 04/26/20 11:57 Last Admin: 04/26/20 16:09 Dose: 1,000 mg Vancomycin HCl (Vancomycin) Confirm Administered Dose 1 gm .ROUTE .STK-MED ONE Stop: 04/26/20 11:57 Vancomycin HCl (Vancomycin) Confirm Administered Dose 1 gm .ROUTE .STK-MED ONE Stop: 04/26/20 13:41 Last Admin: 04/26/20 16:04 Dose: 1 gm - Exam Wound/Incisions: Dressing Dry and Intact General: Alert, Cooperative, No Acute Distress Lungs: Normal Respiratory Effort Extremities: Other (NVS intact for RLE. Nela's negative for RLE.) Sepsis Event Note - Evaluation Sepsis Screening Result: No Definite Risk - Focused Exam Vital Signs: Vital Signs Temp Pulse Resp BP Pulse Ox 04/27/20 08:13 99.0 F 69 16 126/73 98 04/27/20 02:47 98.1 F 69 18 126/77 100 04/27/20 00:32 61 124/78 100 04/27/20 00:02 67 121/77 98 04/26/20 23:32 63 126/71 97 04/26/20 23:02 67 130/70 96 04/26/20 22:32 66 132/77 98 04/26/20 22:02 81 136/80 91 L 04/26/20 21:32 73 134/83 97 04/26/20 21:02 68 143/87 H 95 04/26/20 20:32 59 L 136/93 H 89 L Date Exam was Performed: 04/27/20 Time Exam was Performed: 08:30 - Problem List Review Problem List Initiated/Reviewed/Updated: Yes - My Orders Last 24 Hours: Active Orders 24 hr Category Date Time Status Oxygen Therapy [RC] .PRN Care 04/26/20 16:45 Active Pulse Oximetry [RC] .PRN Care 04/26/20 16:45 Active Ready for Discharge [RC] PER UNIT ROUTINE Care 04/27/20 08:30 Ordered Regular Diet [DIET] Diet 04/26/20 Lunch Active Aspirin [Ecotrin] Med 04/27/20 09:00 Active 325 mg PO BID Cholecalciferol (Vitamin D3) [Vitamin D3] Med 04/26/20 21:00 Active 5,000 unit PO BEDTIME Cyclobenzaprine [Flexeril] Med 04/26/20 15:00 Active 10 mg PO TID PRN Docusate Sodium [Colace] Med 04/26/20 21:00 Active 100 mg PO BID Famotidine [Pepcid] Med 04/26/20 21:00 Active 20 mg PO Q12H Ketorolac [Toradol] Med 04/26/20 16:00 Active 15 mg IVPUSH Q6H PRN Magnesium Hydroxide [Milk of Magnesia] Med 04/26/20 21:00 Active 30 ml PO BID PRN Sennosides [Senna] Med 04/26/20 21:00 Active 8.6 mg PO BID PRN ceFAZolin [Ancef] 2 gm Med 04/26/20 20:00 Active Premix Bag 1 bag IV Q8H Medication Orders Aspirin (Ecotrin) 325 mg PO BID [facility] Last Admin: 04/27/20 08:18 Dose: 325 mg Bisacodyl (Dulcolax) 5 mg PO DAILY PRN PRN Reason: Constipation Cholecalciferol (Vitamin D3) 5,000 unit PO BEDTIME [facility] Last Admin: 04/26/20 21:11 Dose: 5,000 unit Cyclobenzaprine HCl (Flexeril) 10 mg PO TID PRN PRN Reason: Spasms Last Admin: 04/27/20 02:44 Dose: 10 mg Docusate Sodium (Colace) 100 mg PO BID [facility] Last Admin: 04/27/20 08:19 Dose: 100 mg Admin: 04/26/20 21:11 Dose: 100 mg Famotidine (Pepcid) 20 mg PO Q12H [facility] Last Admin: 04/27/20 08:18 Dose: 20 mg Admin: 04/26/20 21:11 Dose: 20 mg Cefazolin Sodium/Dextrose 2 gm (/ Premix) 50 mls @ 100 mls/hr IV Q8H [facility] Stop: 04/27/20 12:29 Last Admin: 04/27/20 03:16 Dose: 100 mls/hr Infusion: 04/26/20 21:40 Dose: 100 mls/hr Admin: 04/26/20 21:10 Dose: 100 mls/hr Ketorolac Tromethamine (Toradol) 15 mg IVPUSH Q6H PRN PRN Reason: Pain Last Admin: 04/26/20 21:11 Dose: 15 mg Magnesium Hydroxide (Milk Of Magnesia) 30 ml PO BID PRN PRN Reason: Constipation Morphine Sulfate (Morphine) 2 mg IVPUSH Q2H PRN PRN Reason: Breakthrough Pain Naloxone HCl (Narcan) 0.1 mg IVPUSH Q5M PRN PRN Reason: Oversedation Ondansetron HCl (Zofran) 4 mg IVPUSH Q6H PRN PRN Reason: Nausea/Vomiting Last Admin: 04/27/20 03:16 Dose: 4 mg Admin: 04/26/20 19:17 Dose: 4 mg Oxycodone/Acetaminophen (Percocet 325-5 Mg) 1 - 2 tab PO Q4H PRN PRN Reason: Pain Last Admin: 04/27/20 08:18 Dose: 2 tab Admin: 04/27/20 02:43 Dose: 2 tab Admin: 04/26/20 21:12 Dose: 2 tab Senna (Senna) 8.6 mg PO BID PRN PRN Reason: Constipation - Assessment Assessment (Free Text/Narrative):: POD#1 - s/p right revision knee arthroplasty - Plan Plan (Free Text/Narrative):: 1. Hgb 12.6. 2. 325mg ASA PO BID, frequent mobility, TEDs for VTE prophylaxis. 3. Discharge to home today if cleared by Hospitalist service and if inpt therapy goals met. 4. Outpatient therapy. The pt's case was discussed with Dr. Franco.
[2020-04-27] MEDS ORDERED: Aspirin 325 MG Tab.EC PO SCH (09:00)
--- NOTE | 2020-04-27 09:23 | PCM48HPAN ---
Post Anesthesia Note - EVALUATION WITHIN 48HRS OF ANESTHETIC Vital Signs in Normal Range: Yes Patient Participated in Evaluation: Yes Respiratory Function Stable: Yes Airway Patent: Yes Cardiovascular Function Stable: Yes Hydration Status Stable: Yes Pain Control Satisfactory: Yes Nausea and Vomiting Control Satisfactory: No (Nurse notified to address nausea/ vomiting.) Mental Status Recovered: Yes Vital Signs: Last Vital Signs Temp 37.2 C 04/27/20 08:13 Pulse 69 04/27/20 08:13 Resp 16 04/27/20 08:13 BP 126/73 04/27/20 08:13 Pulse Ox 98 04/27/20 08:13
[2020-04-27] MEDS: Ketorolac 15 MG/ML SDV IVPUSH PRN (11:08)
[2020-04-27 13:32] VITALS: BP 116/69; PULSE 60
--- NOTE | 2020-04-28 15:07 | PCM.OPNOTE ---
- General Post-Op/Procedure Note Date of Surgery/Procedure: 04/26/20 Operative Procedure(s): revision right total knee arthroplatsty Pre Op Diagnosis: painful right total knee Post-Op Diagnosis: Same Anesthesia Technique: Local, MAC, Spinal Primary Surgeon: Gordon Franco Anesthesia Provider: Ismael Laws Elevator Installer: Demetra Jeronimo Elevator Installer: Judy Lopez EBL in mLs: 40 Complications: None Condition: Good Free Text/Narrative:: 01/19 13mm poly 5mm augments both femur and tibia A cone tibia
--- NOTE | 2020-04-28 19:19 | OR ---
DATE OF OPERATION: 04/26/2020 SURGEON: Gordon Franco MD OPERATION PERFORMED: Revision of right total knee arthroplasty. PREOPERATIVE DIAGNOSIS: Painful right total knee arthroplasty. POSTOPERATIVE DIAGNOSIS: Painful right total knee arthroplasty. ANESTHESIA: Local MAC with spinal. ANESTHESIA PROVIDER: Mague Adams. ASSISTANTS: Demetra Jeronimo PA-C; and Judy Lopez LPN. ESTIMATED BLOOD LOSS: 40 mL. COMPLICATIONS: None. CONDITION: Stable. IMPLANTS: 1. [place] size 3 cemented PS femur. 2. [place] size 3 cemented [place] tibial baseplate. 3. [place] size 5 mm distal femoral augments, both medial and lateral, as well as [place] 5 mm augments both medial and lateral on the tibia. 4. [place] size 13 mm PS X3 polyethylene. 5. [place] size A tibial cone. DESCRIPTION OF PROCEDURE: The patient was identified in the preoperative holding area. Proper site was marked and identified by the surgeon. The patient was taken back to the operative theater, where after adequate anesthesia, the patient's right lower extremity had a nonsterile tourniquet applied and then sterilely prepped and draped in the usual sterile fashion. OR-wide time-out was performed. The patient received 2 g of IV Ancef. Right lower extremity was exsanguinated and tourniquet was insufflated to 250 mmHg. The previous incision was utilized. This was taken down to the quadriceps tendon as well as the patella, and a medial parapatellar arthrotomy was created. The patient was noted to have a large amount of scar tissue under the patella as well as under the patellar tendon, and this was resected at this time. I was able to visualize the femoral component and using flexible osteotomes as well as a reciprocating saw, I was able to impact the femur off. The patient had very minimal central bone loss at this time and otherwise no posterior bone loss or anterior bone loss. Attention was turned to the tibia. I did have to remove quite a bit of scar tissue around the tibia and then I was able to get posterior retractor as well as mediolateral retractors to remove any overgrowth of synovium, and then a reciprocating saw as well as a flexible osteotome were used to loosen the tibia and an impactor was used to impact the tibia off. Again, very minimal bone loss. Using hand reamers, I was able to ream up to a 14 for a size 12 mm stem in the tibia. Off this, we used the cutting block, and I was able to resect 4 mm off the tibia with the intramedullary guide for a good clean-up cut. Before I did this, I did remove all of the intracanal cement as well as all the cement off the cut surface. It was found to have a good flat cut with no severe bone loss, but secondary to the revision, I did decide ream for a cone. I was able to ream up to a size A cone for the tibia. The tibia was then stamped and drilled in the proper rotation and attention was turned to the femur. Again, hand reamers were used up to a size 14. This was left in the canal. I was able to do the box cut and then the awl and one [place] femoral cutting block was then placed. It was found to be in good position. I was able to resect 5 mm off for 5 mm distal augments. There was minimal to no resection anteriorly or to the posterior condyles. I was able to place a trial femur with a 50 mm stem as well as the trial tibia with a 50 mm stem and the trial A cone. It was found to be lax at this point, so I did place 5 mm augments on both the distal femur and the proximal tibia with a 13 mm poly to restore the joint line. At this point, the patella was tracking centrally. The patient had no varus or valgus instability, and had full range of motion with no signs of dislocation or subluxations. At this time, all cut surfaces were irrigated with pulse lavage irrigation with Ancef. Three bags of cement were mixed on the back table. We did construct all the components with a size 3 tibia with 5 mm augments on both sides, size 3 femur with distal femoral augments 5 mm, and 50 mm stems on both. The size A cone was first impacted into place and then the tibial component with the stem was cemented into place. All excess cement was removed. The size 3 femur with the stem and augments was then cemented into place. The 13 mm PS X3 polyethylene was then placed. The patient's knee was brought to full extension and it had good bony contact throughout. Excess cement was removed. At this time, 3 L pulse lavage irrigation with Ancef as well as 1 L dilute Betadine solution was irrigated through the knee. Topical tranexamic acid and vancomycin powder were applied as well as periarticular injection. A #2 barbed suture was used for closure of the medial parapatellar arthrotomy, 2-0 Vicryl was used subcutaneously, and Prineo was used for the skin. The patient tolerated the procedure well and was sent to the PACU in stable condition. VARUN /[id number]
== END 2020-04-27 13:15 | disposition home or self-care (01) | DRG 468 ==
LOC: JD.OB 11:24 → JD.MS 17:45
PROVIDERS: ADMIT Orthopaedic Surgery; ATTEND Orthopaedic Surgery
PROC: 0SPC0JZ Removal of Synthetic Substitute from Right Knee Joint, Open Approach (ICD-10-PCS; principal; 2020-04-26)
PROC: 0SRC0J9 Replacement of Right Knee Joint with Synthetic Substitute, Cemented, Open Approach (ICD-10-PCS; 2020-04-26)
DX: T84.84XA Pain due to internal orthopedic prosthetic devices, implants and grafts, initial encounter (principal); E03.9 Hypothyroidism, unspecified; G43.909 Migraine, unspecified, not intractable, without status migrainosus; I10 Essential (primary) hypertension; G47.33 Obstructive sleep apnea (adult) (pediatric); L71.9 Rosacea, unspecified; M62.830 Muscle spasm of back; Z87.442 Personal history of urinary calculi; Z86.39 Personal history of other endocrine, nutritional and metabolic disease; Z79.899 Other long term (current) drug therapy; Z87.440 Personal history of urinary (tract) infections; Z90.710 Acquired absence of both cervix and uterus
CPT/HCPCS: 01402; 36415; 64450; 73560-26-RT; 73560-RT; 80053; 85027; 97110-GP; 97116-GP; 97161-GP; 97165-GO; 97535-GO; A9270-GY; C1713; C1776; J0171; J0690; J0697; J1170; J1885; J2001; J2250; J2270; J2405; J2704; J2795; J3010; J3370; J3490; J7120